=== PATIENT | female | born 1980 | race Native Hawaiian/Other Pacific Islander ===

== ENCOUNTER 2016-12-30 21:28 | Inpatient (IN) | payer OTHER ==
[2016-12-30] MEDS ORDERED: Sodium Chloride 0.9% 1,000 ML IV STA (21:52)
[2016-12-30 22:35] LABS: BASO % 0.1 % (0.0-2.0); EOS % 0.1 % (0.0-4.0); LYMPH # 4.5 K/uL (1.0-4.3); LYMPH % 13.6 % (20.0-40.0); MEAN CORPUSCULAR HEMOGLOBIN 30.5 pg (27.0-31.0); MEAN CORPUSCULAR HGB CONC 31.8 g/dL (33.0-37.0); MONO # 1.8 K/uL (0.0-0.8); MONO % 5.5 % (0.0-10.0); NEUT # 26.5 K/uL (1.8-7.0); NEUT % 80.7 % (50.0-75.0); NRBC % 0.1 % (0.0-0.0); RBC 2.28 Mil/uL (3.80-5.20); RED CELL DISTRIBUTION WIDTH 15.5 % (11.5-14.5); WHITE BLOOD COUNT 32.8 K/uL (4.8-10.8)
--- NOTE | 2016-12-30 22:38 | ED PDOC ---
HPI: Female Pain Time Seen by Provider: 12/30/16 21:40 Chief Complaint (Nursing): Female Genitourinary Chief Complaint (Provider): Female Genitourinary History Per: Patient History/Exam Limitations: no limitations Onset/Duration Of Symptoms: Days (since 12/25/2016.) Current Symptoms Are (Timing): Still Present Additional Complaint(s): 36 y/o female presents to the emergency department with a complaint of heavy vaginal bleeding since 12/25/2016. Associated with clots, and headache. Reports vaginal bleeding acutely worsened last night with sub constant hemorrhage for a good portion of the evening. Denies shortness of breath, chest pain, syncope or near syncope. Of note, patient underwent IVF for this . 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 Butcher ([facility]) with outpatient blood work that demonstrated severe anemia, repeated Beta HCG showed levels were increasing although bedside US did not demonstrate a fetus. Patient was then advised to visit the emergency department. Past Medical History Reviewed: Historical Data, Nursing Documentation, Vital Signs Vital Signs: Last Vital Signs Temp 98.1 F 12/30/16 21:30 Pulse 127 H 12/30/16 21:30 Resp 18 12/30/16 21:30 BP 115/61 12/30/16 21:30 Pulse Ox 96 12/30/16 21:30 - Medical History Other PMH: Endometriosis - Surgical History Other surgeries: 2 surgeries for Endometriosis (adhesions) and fixation for a fractured arm - Family History Family History: States: Unknown Family Hx - Social History Current smoker - smoking cessation education provided: No Ex-Smoker (has not smoked in the last 12 months): Yes Alcohol: None Drugs: Denies - Home Medications Home Medications: Ambulatory Orders Medication Instructions Recorded Calcium Carbonate [Calcium] 500 mg PO DAILY 12/31/16 Fish Oil/Dha/Epa [Fish Oil 1,200 1,200 mg PO DAILY 12/31/16 mg Fish Oil] metFORMIN [glucOPHAGE] 500 mg PO DAILY 12/31/16 predniSONE [predniSONE Tab] 40 mg PO DAILY 12/31/16 - Allergies Allergies/Adverse Reactions: Allergies Allergy/AdvReac Type Severity Reaction Status Date / Time No Known Allergies Allergy Verified 12/30/16 21:30 Review of Systems Cardiovascular: Negative for: Chest Pain Respiratory: Negative for: Shortness of Breath Genitourinary Female: Positive for: Vaginal Bleeding Neurological: Positive for: Headache. Negative for: Other (Syncope or near syncope) Physical Exam - Reviewed Nursing Documentation Reviewed: Yes Vital Signs Reviewed: Yes - Physical Exam Appears: Positive for: Well (Tired appearing), Non-toxic, In Acute Distress ( Mild painful distress) Head Exam: Positive for: ATRAUMATIC, NORMAL INSPECTION, NORMOCEPHALIC Skin: Positive for: Warm, Dry, Pallor ENT: Positive for: Normal ENT Inspection, Other (Tacky mucous membranes). Negative for: Pharyngeal Erythema Neck: Positive for: Normal, Supple Cardiovascular/Chest: Positive for: Tachycardia (With regular rhythm). Negative for: Murmur Respiratory: Positive for: Normal Breath Sounds. Negative for: Accessory Muscle Use, Respiratory Distress Gastrointestinal/Abdominal: Positive for: Normal Exam, Soft. Negative for: Tenderness Extremity: Positive for: Normal ROM. Negative for: Tenderness, Pedal Edema Neurologic/Psych: Positive for: Alert, Oriented - Laboratory Results Result Diagrams: 12/30/16 22:25 12/31/16 00:07 - ECG O2 Sat by Pulse Oximetry: 96 (RA) Pulse Ox Interpretation: Normal - Progress Re-evaluation Time: 23:00 Condition: Improving,but remains with symptoms - Critical Care Total Time (In Min): 30 Documented Critical Care: Time excludes all time spent performint seperately billable procedures Medical Decision Making Medical Decision Making: Time: 21:51 Initial impression: Vaginal bleeding ; discussed with Dr. Euceda who said outpatient hemoglobin was 7.0. Patient will need repeat of blood work in ER , transfusion, transvaginal US with admission for possible D&C. Differential include ectopic , incomplete/threatened miscarriage, and anemia. Initial plan: --Cross match --Type and Screen STAT --Beta-HCG, quantitative --COMP Metabolic Panel --NPO Diet --ED Urine Dipstick (POC) --ED Urine --CBC w/ differential --Partial Thromboplastin Time (COAG) --Prothrombin Time --Dextrose 1,000 ml IV 1,00 mls/hr --Administer Blood Product --IV Insertion --OB Transvaginal (US) --Reevaluation Labs demonstrate anemia and leukocytosis Dr Euceda discussed images with [facility] and will schedule pt for possible OR in AM for D&C. EXAM: US , Transvaginal CLINICAL HISTORY: 36 years old, female; Signs and symptoms; Lmp or gestational age (in weeks): 12/06; Antepartum complications; Hemorrhage; Additional info: Vag bleeding preg R/O ectopic TECHNIQUE: Real-time transvaginal obstetrical ultrasound of the maternal pelvis and a first trimester with image documentation. Transvaginal imaging was used for better evaluation of the fetus and adnexa. COMPARISON: No relevant prior studies available. FINDINGS: Uterus: Endometrial stripe measured at 3.6 mm. Elongated anechoic fluid focus in the region of the cervix. Retroverted uterus. Adnexa: The ovaries are unremarkable in appearance. Free fluid: None. IMPRESSION: Endometrial stripe measured at 3.6 mm. Elongated anechoic fluid focus in the region of the cervix, question if this represents gestational sac. Appearance concerning for a spontaneous in progress. Correlate with beta-hCG. Correlate clinically. Followup imaging recommended. Thank you for allowing us to participate in the care of your patient. Dictated and Authenticated by: Claudia Almeida MD 12/30/2016 11:06 PM Eastern Time ([place] & [place]) DW pt findings and plan of care. Spontaneous in progress vs cervical ectopic Scribe Attestation: Documented by Marlen Fontanez, acting as a scribe for Camille Mcgregor MD. Provider Scribe Attestation: All medical record entries made by the Scribe were at my direction and personally dictated by me. I have reviewed the chart and agree that the record accurately reflects my personal performance of the history, physical exam, medical decision making, and the department course for this patient. I have also personally directed, reviewed, and agree with the discharge instructions and disposition. Disposition - Clinical Impression Clinical Impression: Anemia, Incomplete miscarriage, Other ectopic without intrauterine Counseled Patient/Family Regarding: Studies Performed - Disposition Disposition Time: 23:00 Condition: GUARDED - Pt Status Changed To: Hospital Disposition Of: Inpatient - Admit Certification Admit to Inpatient:: After my assessment, the patient will require hospitalization for at least two midnights. This is because of the severity of symptoms shown, intensity of services needed, and/or the medical risk in this patient being treated as an outpatient. - POA Present On Arrival: None
--- NOTE | 2016-12-30 23:07 | US ---
EXAM: US , Transvaginal CLINICAL HISTORY: 36 years old, female; Signs and symptoms; Lmp or gestational age (in weeks): 12/06/16; Antepartum complications; Hemorrhage; Additional info: Vag bleeding preg R/O ectopic TECHNIQUE: Real-time transvaginal obstetrical ultrasound of the maternal pelvis and a first trimester with image documentation. Transvaginal imaging was used for better evaluation of the fetus and adnexa. COMPARISON: No relevant prior studies available. FINDINGS: Uterus: Endometrial stripe measured at 3.6 mm. Elongated anechoic fluid focus in the region of the cervix. Retroverted uterus. Adnexa: The ovaries are unremarkable in appearance. Free fluid: None. IMPRESSION: Endometrial stripe measured at 3.6 mm. Elongated anechoic fluid focus in the region of the cervix, question if this represents gestational sac. Appearance concerning for a spontaneous in progress. Correlate with beta-hCG. Correlate clinically. Followup imaging recommended.
[2016-12-30 23:29] LABS: INR 0.9 (0.9-1.2); PARTIAL THROMBOPLASTIN TIME 21.9 Seconds (25.6-37.1); PROTHROMBIN TIME 10.1 Seconds (9.8-13.1)
[2016-12-31 00:18] LABS: ALB/GLOB RATIO 1.8 (1.0-2.1); ALBUMIN 3.2 g/dL (3.5-5.0); ALT/SGPT 58 U/L (9-52); AST/SGOT 33 U/L (14-36); BLOOD UREA NITROGEN 20 mg/dl (7-17); CALCIUM 8.1 mg/dL (8.4-10.2); GFR AFRICAN-AMERICAN > 60; GFR NON-AFRICAN AMERICAN > 60
[2016-12-31 01:40] VITALS: RESP 18
[2016-12-31 08:11] VITALS: BP 103/63; PULSE 89; TEMP 98
--- NOTE | 2016-12-31 10:01 | CP.PCM.HP ---
History of Present Illness - History of Present Illness History of Present Illness: 36 yo at 6 weeks gestation via ivf presenting with severe vaginal bleeding, symptomatic anemia with a diagnosis of cervical ectopic . The date of Embryo Transfer is 12/06/2016. The batient had abnormally doubling bhcg and was seen repeatedly in the office By Dr. Jaguar Hernandez who suspected a low uterine segment vs cervical . Her las bhcg in the office was on 12/30 at 4200 and today early childhood coordinator was 7200 ( there may be lab differences). The patient had significan bleeding on 12/30 am, passing a large clot , but now the bleeding has subsided. She had a CBC at the office on 12/30/2016 with ahb of 7 and ht 21. the patient was severely symptomatic and presented to the ED. Pt has a hx of habitual and was on lovenox , last dose 12/29. An ultrasound in the ED confirmed presence of a Cervical Ectopic without a FHR Present on Admission - Present on Admission Any Indicators Present on Admission: No History of DVT/PE: No History of Uncontrolled Diabetes: No Urinary Catheter: No Decubitus Ulcer Present: No Review of Systems - Genitourinary Genitourinary: As Per HPI - Reproductive: Female Reproductive:Female: As Per HPI - Menstruation Menstruation: As Per HPI - Musculoskeletal Musculoskeletal: As Per HPI Past Patient History - Past Medical History & Family History Past Medical History?: Yes - Past Social History Smoking Status: Former Smoker - CARDIAC Hx Cardiac Disorders: No - PULMONARY Hx Respiratory Disorders: No - NEUROLOGICAL Hx Neurological Disorder: No - HEENT Hx HEENT Problems: No - RENAL Hx Chronic Kidney Disease: No - ENDOCRINE/METABOLIC Hx Endocrine Disorders: No - HEMATOLOGICAL/ONCOLOGICAL Hx Blood Disorders: No - INTEGUMENTARY Hx Dermatological Problems: No - MUSCULOSKELETAL/RHEUMATOLOGICAL Hx Musculoskeletal Disorders: No Hx Falls: No Hx Fractures: Yes (right arm with screw) - GASTROINTESTINAL Hx Gastrointestinal Disorders: No - GENITOURINARY/GYNECOLOGICAL Hx Genitourinary Disorders: Yes Other/Comment: endometriosis with lap surgery x2 - PSYCHIATRIC Hx Psychophysiologic Disorder: No Hx Substance Use: No - SURGICAL HISTORY Hx Surgeries: Yes - ANESTHESIA Hx Anesthesia: Yes Hx Anesthesia Reactions: No Hx Malignant Hyperthermia: No Has any member of the family had a problem w/ anesthesia?: No Meds Allergies/Adverse Reactions: Allergies Allergy/AdvReac Type Severity Reaction Status Date / Time No Known Allergies Allergy Verified 12/30/16 21:30 Physical Exam - GI/Abdominal Exam Additional comments: abdominal bruises secondary to lovenox Results - Vital Signs Recent Vital Signs: Last Vital Signs Temp 98 F 12/31/16 08:11 Pulse 89 12/31/16 08:11 Resp 18 12/31/16 08:11 BP 103/63 12/31/16 08:11 Pulse Ox 99 12/31/16 08:11 - Labs Result Diagrams: 12/30/16 22:25 12/31/16 00:07 Labs: Laboratory Results - last 24 hr 12/31/16 00:07 Sodium 136 Potassium 3.5 L Chloride 102 Carbon Dioxide 27 Anion Gap 11 BUN 20 H Creatinine 0.7 Est GFR ( Amer) > 60 Est GFR (Non-Af Amer) > 60 Random Glucose 105 Calcium 8.1 L Total Bilirubin < 0.1 L AST 33 ALT 58 H Alkaline Phosphatase 55 Total Protein 5.0 L Albumin 3.2 L Globulin 1.8 L Albumin/Globulin Ratio 1.8 Beta HCG, Quant 7288.50 Assessment & Plan (1) 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
--- NOTE | 2016-12-31 10:16 | CP.PCM.PN ---
Subjective - Date & Time of Evaluation Date of Evaluation: 12/31/16 Time of Evaluation: 10:12 - Subjective Subjective: patient feeling much better after blood transfusion of 2 units not currently bleeding ,has not bled for the past 24 hours Objective - Vital Signs/Intake and Output Vital Signs (last 24 hours): Temp Pulse Resp BP Pulse Ox 98 F 89 18 103/63 99 12/31/16 08:11 12/31/16 08:11 12/31/16 08:11 12/31/16 08:11 12/31/16 08:11 - Medications Medications: Current Medications Dextrose/Sodium Chloride (Dextrose 5%-0.9% Ns 500 Ml) 1,000 mls @ 100 mls/hr IV .Q10H SAGE - Labs Labs: 12/31/16 00:07 PT 10.1 Seconds (9.8-13.1) 12/30/16 21:53 INR 0.9 (0.9-1.2) 12/30/16 21:53 APTT 21.9 Seconds (25.6-37.1) L 12/30/16 21:53 - GI/Abdominal Exam Additional comments: bruised Assessment and Plan (1) 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 As these cases are quite complex and require interventional radiology and can incur in significant complications I consulted with Dr. Almendarez at [facility], a [facility] 3 center. He racommended transfe as the patient is currently hemodynamically stable and not actively bleeding Plan: transfer to [facility] for management of Cervical Ectopic
--- NOTE | 2016-12-31 20:14 | US ---
PROCEDURE: HISTORY: Color doppler to rule out intracervical COMPARISON: 12/30/2016 TECHNIQUE: FINDINGS: The uterus is normal in size. There is fluid in the endocervical canal measuring 7 x 1.5 x 0.5 cm which could represent cervical gestational sac. The ovaries have a normal cysts sonographic appearance. The endometrium is unremarkable. IMPRESSION: Question cervical measuring 0.9 cm. Recommend correlation with beta HCG levels as well short-term interval follow-up
[2016-12-31 22:13] VITALS: O2SAT 96
== END 2016-12-31 13:00 | disposition short-term general hospital (02) | DRG 777 ==
LOC: H.ER 21:28 → H.ERHOLD 22:48 → H.TEL 12-31 00:19
PROVIDERS: ADMIT Obstetrics & Gynecology Reproductive Endocrinology; ATTEND Obstetrics & Gynecology Reproductive Endocrinology
DX: O00.80 Other ectopic pregnancy without intrauterine pregnancy (principal); D50.0 Iron deficiency anemia secondary to blood loss (chronic); Z87.891 Personal history of nicotine dependence; Z3A.01 Less than 8 weeks gestation of pregnancy